=== PATIENT | female | born 1990 | race Caucasian/White ===

== ENCOUNTER 2017-04-09 19:10 | Emergency (ER) | payer SELFPAY ==
[~2017-04-09] VITALS: Ht 180.3 cm; Wt 77.1 kg
[~2017-04-09 19:10] MED LIST: AC500T PO; ACHD5005 PO; AMOX500C2 PO; CODE-54 PO; CYCL10TA9 PO; DICL50TA3 PO; HYDR-757 PO; IBP600T1 PO; OXYC-12 PO; PREN1TAB39 PO
[2017-04-09] MEDS ORDERED: AMOXICILLIN 500 MG (POLYMOX) CAP PO STA (19:19)
[2017-04-09] MEDS ORDERED: CEFU250T80 PO (19:22)
--- NOTE | 2017-04-09 19:22 | ED EENT ---
History of Present Illness General Stated Complaint: SORE THROAT FEVER HEAD CONGESTION Source: patient Exam Limitations: no limitations History of Present Illness Time seen by provider: 19:19 Initial Comments To ER with a six-day history of intermittent fever, sore throat, rhinorrhea and nasal congestion, nonproductive cough. Timing/Duration: abrupt Severity: moderate Location: throat Associated Symptoms: denies symptoms Allergies and Home Medications Allergies Uncoded Allergies: PET DANDER (Adverse Reaction, RASH, CONGESTION, 08/15/10) Home Medications Acetaminophen/Codeine 1 Tab Tablet, 1-2 TAB PO Q6H PRN for PAIN, #24 Ref 0 Prescribed by: SHARI CORTEZ on 09/16/14726 Amoxicillin 500 Mg Capsule, 1 EACH PO Q8H, #30 Ref 0 Prescribed by: SHARI CORTEZ on 09/16/14726 Diclofenac Potassium 50 Mg Tablet, 50 MG PO Q8H PRN for PAIN, #30 Ref 0 Prescribed by: SHARI CORTEZ on 09/16/14726 Review of Systems Constitutional: see HPI Eyes: No Symptoms Reported Ears: No Symptoms Reported Nose: no symptoms reported Mouth: no symptoms reported Throat: see HPI Respiratory: no symptoms reported Cardiovascular: no symptoms reported Musculoskeletal: no symptoms reported Past Rkdofoq-Kyfgax-Ygldkb Hx Patient Social History Recent Foreign Travel: No Contact w/Someone Who Travel: No Immunizations Up To Date Date of Influenza Vaccine: Aug 25, 2012 Surgeries HX Surgeries: Yes ( X2/cholecystectomy/appendectomy) Respiratory Hx Respiratory Disorders: No Cardiovascular Hx Cardiac Disorders: No Neurological Hx Neurological Disorders: No Reproductive System Hx Reproductive Disorders: No Sexually Transmitted Disease: No Genitourinary Hx Genitourinary Disorders: No Gastrointestinal Hx Gastrointestinal Disorders: Yes (GB REMOVED) Gastrointestinal Disorders: Gall Bladder Disease Musculoskeletal Hx Musculoskeletal Disorders: No Endocrine Hx Endocrine Disorders: No HEENT HX ENT Disorders: No Cancer Hx Cancer: No Psychosocial Hx Psychiatric Problems: No Integumentary HX Skin/Integumentary Disorder: No Blood Transfusions Hx Blood Disorders: No Physical Exam General Appearance: WD/WN, no apparent distress Eyes: bilateral eye EOMI, bilateral eye PERRL, bilateral eye normal inspection Ears: bilateral ear TM normal, bilateral ear auricle normal, bilateral ear canal normal Mouth/Throat: mandibular swelling, No pharynx swelling, No pharynx tenderness, No tongue swollen, No tonsillar exudate, tonsillar swelling, No trismus, No uvula swelling, No voice changes Neck: non-tender, full range of motion Cardiovascular: regular rate, rhythm, no murmur Respiratory: no respiratory distress, no accessory muscle use Gastrointestinal: normal bowel sounds, non tender, soft Neurologic/Psychiatric: alert, normal mood/affect, oriented x 3 Skin: normal color, warm/dry, No rash Departure Impression Impression: Primary Impression: Pharyngitis Disposition: 01 HOME, SELF-CARE Condition: Stable Departure-Patient Inst. Decision time for Depature: 19:21 Referrals: NO,LOCAL PHYSICIAN (PCP) Primary Care Physician Patient Instructions: Sore Throat in Adults Add. Discharge Instructions: 1. Return to ER for any concerns 2. Follow-up with your doctor next week if you fail to improve to discuss testing for mononucleosis 3. Tylenol and Motrin for any pain Scripts Cefuroxime Axetil (Cefuroxime) 250 Mg Tablet 250 MG PO BID, #14 TAB Prov: BELEN MEDRANO APRN 04/09/17 BELEN MEDRANO APRN Apr 09, 2017 19:22
[2017-04-09] MEDS ORDERED: DEXAMETHASONE PF 10 MG/ML (DECADRON) VIAL IM ONE (19:30)
[2017-04-09 19:36] VITALS: BP 0/0
== END 2017-04-09 19:37 | disposition home or self-care (01) ==
LOC: EDUNIT# 19:10 → ER 19:13
DX: J02.9 Acute pharyngitis, unspecified (principal)
CPT/HCPCS: 87430; 96372; 99284

== ENCOUNTER 2022-05-22 01:41 | Emergency (ER) | payer MEDICAID, OTHER ==
[~2022-05-22] VITALS: Ht 180 cm; Wt 82.0 kg
[~2022-05-22 01:41] MED LIST changes: +CEFU250T80 PO
[2022-05-22 01:52] VITALS: BP 138/95
[2022-05-22] MEDS ORDERED: PHEN30CA21 PO (01:59)
--- NOTE | 2022-05-22 02:05 | ED Upper Extremity ---
General Chief Complaint: Upper Extremity Stated Complaint: R THUMB PAIN,SWELLING,UNABLE TO MOVE Source: patient Exam Limitations: no limitations History of Present Illness Date Seen by Provider: May 22, 2022 Time Seen by Provider: 01:54 Initial Comments Patient to the ER by private conveyance with chief complaint that she is now having pain in her right thumb last hour after she became upset and started throwing things. She does not member exactly how she injured her right thumb but it is painful to move and she cannot flex it. She does not have any injury or laceration to the skin. No previous injury to the thumb or hand. No previous surgery. Pain does not extend beyond the base of her thumb. She is not having any pain in her wrist and has full range of motion of her wrist and other 4 fingers on the right hand. She feels the right thumb is swollen larger than her left. She is right-hand dominant. Allergies and Home Medications Allergies Uncoded Allergies: PET DANDER (Adverse Reaction, RASH, CONGESTION, 08/15/10) Patient Home Medication List Home Medication List Reviewed: Yes Phentermine HCl (Phentermine HCl) 30 Mg Capsule, Unknown Dose PO, (Reported) Entered as Reported by: KING PEREZ on 05/22/22 0159 Last Action: New Order Discontinued Medications Acetaminophen/Codeine (Tylenol W/Codeine #3 Tablet) 1 Tab Tablet, 1-2 TAB PO Q6H PRN for PAIN Discontinued Reason: No Longer Taking Prescribed by: SHARI CORTEZ on 09/16/14726 Last Action: Discontinued Amoxicillin (Amoxicillin) 500 Mg Capsule, 1 EACH PO Q8H Discontinued Reason: No Longer Taking Prescribed by: SHARI CORTEZ on 09/16/14726 Last Action: Discontinued Cefuroxime Axetil (Cefuroxime) 250 Mg Tablet, 250 MG PO BID Discontinued Reason: No Longer Taking Prescribed by: BELEN MEDRANO on 04/09/171921 Last Action: Discontinued Diclofenac Potassium (Cataflam) 50 Mg Tablet, 50 MG PO Q8H PRN for PAIN Discontinued Reason: No Longer Taking Prescribed by: SHARI CORTEZ on 09/16/14726 Last Action: Discontinued Review of Systems Constitutional: No chills, No fever EENTM: No ear discharge, No hearing loss Respiratory: No cough, No short of breath Cardiovascular: No chest pain, No edema Gastrointestinal: No abdominal pain, No nausea All Other Systems Reviewed Negative Unless Noted: Yes Past Estsqcj-Culttb-Rqlqfe Hx Patient Social History Tobacco Use?: No Substance use?: No Alcohol Use?: No Pt feels they are or have been: No Past Medical History Surgery/Hospitalization HX: DENTAL, C-SECT X3, GALLBLADDER, APPENDECTOMY, TUBAL, Surgeries: Yes ( X2/cholecystectomy/appendectomy) Respiratory: No Cardiac: No Neurological: No Reproductive Disorders: No Sexually Transmitted Disease: No Gastrointestinal: Yes (GB REMOVED) Gall Bladder Disease Musculoskeletal: No Endocrine: No Cancer: No Psychosocial: No Integumentary: No Blood Disorders: No Physical Exam Vital Signs Vital Signs - First Documented 05/22/22 01:52 Temp 35.9 Pulse 87 Resp 16 B/P (MAP) 138/95 (109) Pulse Ox 98 O2 Delivery Room Air Capillary Refill : Height, Weight, BMI Height: 5'11.00" Weight: 170lbs. oz. 77.872777vn; BMI Method:Stated General Appearance: WD/WN, no apparent distress HEENT: PERRL/EOMI, pharynx normal Neck: full range of motion, supple, normal inspection Cardiovascular: normal peripheral pulses, regular rate, rhythm Respiratory: no respiratory distress, no accessory muscle use Wrist: Yes normal inspection, Yes non-tender, Yes no evidence of injury, Yes normal ROM Hand: Right, bone tenderness (Distal and proximal phalanx tenderness to palpation without deformity or crepitus 1st digit), swelling (min) Progress/Results/Core Measures Results/Orders My Orders Orders - MANISHA SANTOS Finger(S) (05/22/22 02:00) Vital Signs/I&O Progress Progress Note : Time: 02:04 Progress Note Ice and XR. Declined pain meds. Diagnostic Imaging Diagonstic Imaging: Xray Plain Films/CT/US/NM/MRI: hand (r) Comments No acute osseous abnormality. [facility], [place] NAME: LYNDA WHITFIELDYani Enrique MED REC#: [id number] PT STATUS: DEP ER : 1990 PHYSICIAN: MANISHA SANTOS MD ADMIT DATE: 05/22/22/ER Signed Date of Exam:05/22/22 FINGER(S) INDICATION: Right thumb pain EXAMINATION: Right thumb 05/22/2022. FINDINGS: Frontal view of the hand with 2 views of the right thumb. FINDINGS: There is no evidence for an acute fracture or dislocation. The joint spaces are well maintained. There is no significant soft tissue swelling. IMPRESSION: No acute process. Dictated by: Dictated on workstation # [id number] Dict: 05/22/2259 Trans: 05/22/22822 [facility] [id number] Interpreted by: GAYLA CAMPOS MD Electronically signed by: GAYLA CAMPOS MD 05/22/22822 Reviewed: Reviewed by Me Departure Impression Primary Impression: Sprain of right thumb Qualified Codes: S63.601A - Unspecified sprain of right thumb, initial encounter Disposition: HOME, SELF-CARE Condition: Stable Departure-Patient Inst. Decision time for Depature: 02:21 Referrals: ADAM KIRKPATRICK,LOCAL PHYSICIAN (PCP) Primary Care Physician Patient Instructions: Sprained Thumb (DC) Add. Discharge Instructions: Ice 20 minutes on every 2 hours while awake for the first 2 to 3 days. Tylenol 1000 mg every 8 hours needed for pain. Ibuprofen 800 mg every 8 hours as needed for pain. If you are still having significant pain or disability in 5 to [address] KIRKPATRICK, hand surgeon at [facility] and request a follow-up appointment. Wear the splint except to bathe. All discharge instructions reviewed with patient and/or family. Voiced understanding. Work/School Note: Work Release Form Date Seen in the Emergency Department: May 22, 2022 Return to Work: May 23, 2022 Restrictions: Need Release from Doctor Other Restrictions Listed Below: Right hand in thumb splint until 06/05/2022. Copy Copies To 1: ADAM KIRKPATRICK TITUS J May 22, 2022 02:05
--- NOTE | 2022-05-22 07:00 | Diagnostic Imaging Report ---
INDICATION: Right thumb pain EXAMINATION: Right thumb 05/22/2022. FINDINGS: Frontal view of the hand with 2 views of the right thumb. FINDINGS: There is no evidence for an acute fracture or dislocation. The joint spaces are well maintained. There is no significant soft tissue swelling. IMPRESSION: No acute process. Dictated by: Dictated on workstation # [id number]
== END 2022-05-22 02:33 | disposition home or self-care (01) ==
LOC: EDUNIT# 01:41 → ER 01:43
DX: S63.601A Unspecified sprain of right thumb, initial encounter (principal); Z28.310 Unvaccinated for COVID-19; X58.XXXA Exposure to other specified factors, initial encounter
CPT/HCPCS: 73140